=== PATIENT | male | born 1940 | race Caucasian/White ===

== ENCOUNTER 2017-02-11 12:05 | Emergency (ER) | payer MEDICARE, OTHER ==
[2017-02-11] MEDS ORDERED: Acetaminophen TAB* 325 MG PO ONE (12:55)
[2017-02-11] MEDS ORDERED: Gentamicin ADULT (*) 40 MG/ML VIAL IVPB ONE (12:56)
[2017-02-11 13:13] LABS: Urine Bacteria 1+ (Absent); Urine Bilirubin Negative (Negative); Urine Glucose Negative (Negative); Urine Nitrite Positive (Negative)
[2017-02-11] MEDS: NS 0.9% 1000 ML* 2,000 ML IV ONE ×2 (13:36→14:36)
[2017-02-11 13:48] LABS: Hematocrit 43 % (42-52); Hemoglobin 14.3 g/dl (14.0-18.0); Mean Corpuscular HGB Conc 33 g/dl (31-36); Mean Corpuscular Hemoglobin 35 pg (27-31); Mean Corpuscular Volume 104 fL (80-94); Mean Platelet Volume 9 um3 (7.4-10.4); Red Blood Count 4.16 10^6/ul (4.0-5.4); Red Cell Distribution Width 14 % (10.5-15); White Blood Count 11.1 10^3/ul (3.5-10.8)
[2017-02-11 14:07] LABS: Albumin 3.8 g/dL (3.2-5.2); BUN/Creatinine Ratio 11.3 (8-20); C Reactive Protein 96.45 mg/L (< 5.00); Calcium 8.9 mg/dL (8.6-10.3); EGFR African American 87.8 (>60); EGFR Non-African American 68.3 (>60); Globulin 2.9 g/dL (2-4); Potassium 3.9 mmol/L (3.5-5.0); Total Bilirubin 1.1 mg/dL (0.2-1.0); Total Protein 6.7 g/dL (6.4-8.9)
[2017-02-11 16:46] VITALS: BP 147/71
--- NOTE | 2017-02-11 18:37 | ED ---
Audrey Deutsch Auryana, scribed for Manpreet Forte MD on 02/11/17 at 1234 . GI/ HPI - HPI Summary HPI Summary: 76 year old male presents with dysuria starting today. He also reports decreased urinary output, malodorous urine, hematuria, mild headache, decreased appetite, and mild right flank pain. He also reports fever and chills that started yesterday. He denies any current flank pain, any cough, or any diarrhea. Patient reports that he has a cystoscopy done 3 days ago and was not advised to cease taking blood thinners. He denies any sick contact. Patient is currently on rifampin for a right leg wound. PMHx is significant for kidney stone removal, HTN, atrial fibrillation (Xarelto and baby daily), and rhinitis. He denies any history of DM, bladder/kidney infection, or bladder cancer. SHx is significant for tobacco use. - History of Current Complaint Chief Complaint: EDFever Time Seen by Provider: 02/11/17 12:28 Stated Complaint: FEVER Hx Obtained From: Patient Onset/Duration: Started Days Ago, Still Present Timing: Constant Severity: Mild Current Severity: Mild Pain Intensity: 2 - REPORTS MILD RIGHT FLANK PAIN Associated Signs and Symptoms: Positive: Fever, Change in Appetite - DECREASED APPEITE, Flank Pain - MILD RIGHT, Chills, Other: - decreased urinary output, malodorous urine, hematuria, mild headache. Negative: Diarrhea, Cough - Allergy/Home Medications Allergies/Adverse Reactions: Allergies Allergy/AdvReac Type Severity Reaction Status Date / Time No Known Allergies Allergy Verified 02/11/17 12:10 PMH/Surg Hx/FS Hx/Imm Hx Cardiovascular History: Reports: Hx Atrial Fibrillation, Hx Hypertension Respiratory History: Reports: Other Respiratory Problems/Disorders - RHINITIS Infectious Disease History: Yes Infectious Disease History: Denies: Traveled Outside the [place] in Last 30 Days - Family History Known Family History: Positive: Other - bladder cancer - Social History Occupation: Retired Lives: With Family Alcohol Use: None Hx Substance Use: No Substance Use Type: Reports: None Hx Tobacco Use: Yes Smoking Status (MU): Light Every Day Tobacco Smoker Review of Systems Positive: Fever, Chills Eyes: Negative Positive: Epistaxis Cardiovascular: Negative Respiratory: Negative Positive: Other. Negative: Diarrhea Positive: dysuria, flank pain - mild right flank pain , hematuria, other - decreased urinary output; malodorous urine Musculoskeletal: Negative Skin: Negative Positive: Headache Psychological: Normal All Other Systems Reviewed And Are Negative: Yes Physical Exam - Summary Physical Exam Summary: The patient is well-nourished in no acute distress and in no acute pain. The skin is warm and dry and skin color reflects adequate perfusion. There is good skin turgor. HEENT: The head is normocephalic and atraumatic. The pupils are equal and reactive. The conjunctivae are clear and without drainage. Nares are patent and without drainage. Mouth reveals moist mucous membranes and the throat is without erythema and exudate. The external ears are intact. The ear canals are patent and without drainage. The tympanic membranes are intact. Neck is supple with full range of motion and non-tender. There are no carotid bruits. There is no neck vein distension. Respiratory: Chest is non-tender. Lungs are clear to auscultation and breath sounds are symmetrical and equal. Cardiovascular: Hear is regular rate and rhythm. There is no murmur or rub auscultated. There is no peripheral edema and pulses are symmetrical and equal. Abdomen: The abdomen is soft and non-tender. There are normal bowel sounds heard in all four quadrants and there is no organomegaly palpated. Musculoskeletal: There is no back pain noted, and no CVA tenderness. Extremities are non-tender with full range of motion. There is good capillary refill and good pulses. There is no peripheral edema or calf tenderness elicited. Neurological: Patient is alert and oriented to person, place and time. The patient has symmetrical motor strength in all four extremities. Cranial nerves are grossly intact. Deep tendon reflexes are symmetrical and equal in all four extremities. Psychiatric: The patient has an appropriate affect and does not exhibit any anxiety or depression. Triage Information Reviewed: Yes Vital Signs On Initial Exam: Initial Vitals Temp Pulse Resp BP Pulse Ox 101.3 F 73 16 154/104 95 02/11/17 12:10 02/11/17 12:10 02/11/17 12:10 02/11/17 12:10 02/11/17 12:10 Vital Signs Reviewed: Yes Diagnostics - Vital Signs Vital Signs Temp Pulse Resp BP Pulse Ox 02/11/17 12:10 101.3 F 73 16 154/104 95 - Laboratory Lab Results: Lab Results 02/11/17 02/11/17 02/11/17 Range/Units 13:00 13:30 13:30 WBC 11.1 H (3.5-10.8) 10^3/ul RBC 4.16 (4.0-5.4) 10^6/ul Hgb 14.3 (14.0-18.0) g/dl Hct 43 (42-52) % MCV 104 H (80-94) fL MCH 35 H (27-31) pg MCHC 33 (31-36) g/dl RDW 14 (10.5-15) % Plt Count 123 L (150-450) 10^3/ul MPV 9 (7.4-10.4) um3 Neut % (Auto) 86.3 H (38-83) % Lymph % (Auto) 3.8 L (25-47) % D[place]key % (Auto) 9.6 H (1-9) % Eos % (Auto) 0 (0-6) % Baso % (Auto) 0.3 (0-2) % Absolute Neuts (auto) 9.6 H (1.5-7.7) 10^3/ul Absolute Lymphs (auto) 0.4 L (1.0-4.8) 10^3/ul Absolute Monos (auto) 1.1 H (0-0.8) 10^3/ul Absolute Eos (auto) 0 (0-0.6) 10^3/ul Absolute Basos (auto) 0 (0-0.2) 10^3/ul Absolute Nucleated RBC 0 10^3/ul Nucleated RBC % 0 INR (Anticoag Therapy) 1.88 H (0.89-1.11) Sodium (133-145) mmol/L Potassium (3.5-5.0) mmol/L Chloride (101-111) mmol/L Carbon Dioxide (22-32) mmol/L Anion Gap (2-11) mmol/L BUN (6-24) mg/dL Creatinine (0.67-1.17) mg/dL Est GFR ( Amer) (>60) Est GFR (Non-Af Amer) (>60) BUN/Creatinine Ratio (8-20) Glucose (70-100) mg/dL Lactic Acid (0.5-2.0) mmol/L Calcium (8.6-10.3) mg/dL Total Bilirubin (0.2-1.0) mg/dL AST (13-39) U/L ALT (7-52) U/L Alkaline Phosphatase (34-104) U/L C-Reactive Protein (< 5.00) mg/L Total Protein (6.4-8.9) g/dL Albumin (3.2-5.2) g/dL Globulin (2-4) g/dL Albumin/Globulin Ratio (1-3) Urine Color Yellow Urine Appearance Cloudy Urine pH 7.0 (5-9) Ur Specific [place] 1.016 (1.010-1.030) Urine Protein 1+(30 mg/dl) H (Negative) Urine Ketones Trace H (Negative) Urine Blood 3+ H (Negative) Urine Nitrate Positive H (Negative) Urine Bilirubin Negative (Negative) Urine Urobilinogen Positive H (Negative) Ur Leukocyte Esterase 3+ H (Negative) Urine WBC (Auto) 3+(>20/hpf) H (Absent) Urine RBC (Auto) 2+(6-10/hpf) H (Absent) Ur Transition Epith Cell Present H (Absent) Urine Bacteria 1+ H (Absent) Urine Glucose Negative (Negative) 02/11/17 02/11/17 Range/Units 13:30 13:30 WBC (3.5-10.8) 10^3/ul RBC (4.0-5.4) 10^6/ul Hgb (14.0-18.0) g/dl Hct (42-52) % MCV (80-94) fL MCH (27-31) pg MCHC (31-36) g/dl RDW (10.5-15) % Plt Count (150-450) 10^3/ul MPV (7.4-10.4) um3 Neut % (Auto) (38-83) % Lymph % (Auto) (25-47) % Dickey % (Auto) (1-9) % Eos % (Auto) (0-6) % Baso % (Auto) (0-2) % Absolute Neuts (auto) (1.5-7.7) 10^3/ul Absolute Lymphs (auto) (1.0-4.8) 10^3/ul Absolute Monos (auto) (0-0.8) 10^3/ul Absolute Eos (auto) (0-0.6) 10^3/ul Absolute Basos (auto) (0-0.2) 10^3/ul Absolute Nucleated RBC 10^3/ul Nucleated RBC % INR (Anticoag Therapy) (0.89-1.11) Sodium 133 (133-145) mmol/L Potassium 3.9 (3.5-5.0) mmol/L Chloride 104 (101-111) mmol/L Carbon Dioxide 23 (22-32) mmol/L Anion Gap 6 (2-11) mmol/L BUN 12 (6-24) mg/dL Creatinine 1.06 (0.67-1.17) mg/dL Est GFR ( Amer) 87.8 (>60) Est GFR (Non-Af Amer) 68.3 (>60) BUN/Creatinine Ratio 11.3 (8-20) Glucose 137 H (70-100) mg/dL Lactic Acid 1.2 (0.5-2.0) mmol/L Calcium 8.9 (8.6-10.3) mg/dL Total Bilirubin 1.10 H (0.2-1.0) mg/dL AST 16 (13-39) U/L ALT 10 (7-52) U/L Alkaline Phosphatase 53 (34-104) U/L C-Reactive Protein 96.45 H (< 5.00) mg/L Total Protein 6.7 (6.4-8.9) g/dL Albumin 3.8 (3.2-5.2) g/dL Globulin 2.9 (2-4) g/dL Albumin/Globulin Ratio 1.3 (1-3) Urine Color Urine Appearance Urine pH (5-9) Ur Specific [place] (1.010-1.030) Urine Protein (Negative) Urine Ketones (Negative) Urine Blood (Negative) Urine Nitrate (Negative) Urine Bilirubin (Negative) Urine Urobilinogen (Negative) Ur Leukocyte Esterase (Negative) Urine WBC (Auto) (Absent) Urine RBC (Auto) (Absent) Ur Transition Epith Cell (Absent) Urine Bacteria (Absent) Urine Glucose (Negative) Result Diagrams: 02/11/17 13:30 02/11/17 13:30 Lab Statement: Any lab studies that have been ordered have been reviewed, and results considered in the medical decision making process. Re-Evaluation - Re-Evaluation First Eval Re-Evaluation Time: 16:23 Change: Improved - and patient would like to go home GIGU Course/Dx - Course Assessment/Plan: 76 year old male presents with dysuria starting today. He also reports decreased urinary output, malodorous urine, hematuria, mild headache, decreased appetite, and mild right flank pain. He also reports fever and chills that started yesterday. He denies any current flank pain, any cough, or any diarrhea. Patient reports that he has a cystoscopy done 3 days ago and was not advised to cease taking blood thinners. He denies any sick contact. Patient is currently on rifampin for a right leg wound. PMHx is significant for kidney stone removal, HTN, atrial fibrillation (Xarelto and baby daily), and rhinitis. He denies any history of DM, bladder/kidney infection, or bladder cancer. SHx is significant for tobacco use. The patient was discussed with Dr. Russo. He recommends a bladder scan, 2g Rocephin, 180mg gentamycin, IV fluids, and if patient does not meet septic criteria, to discharge home. In ED course, patient was given 2g Rocephin, 180mg gentamycin, acetaminophen, and IV fluids. Blood work shows WBC 11.1, platelet count 123, INR 1.88, GLUCOSE 137, Total bilirubin 1.1, CRP 96.45, and lactic acid 1.2. LFT are WNL. UA shows protein 1+ , trace ketones, blood 3+, nitrate (+), urobilinogen (+), leukocyte esterase 3+ , WBC 3+, RBC 2+, (+) transition epithelial cells, and bacteria 1+. Dr. Russo 914:52) consulted patient in the ED and recommended observation for 1 hour and if the patient is feeling better, discharge him home with Bactrim, but if not, consult for admission. On re-evaluation, plan of action was discussed and the patient reports that he is feeling better. He will be discharged home with Bactrim and given follow up to PCP and Dr. Russo. Patient agrees with plan. Dx: U.T.I. - Diagnoses Differential Diagnoses - Male: Dehydration, Pyelonephritis, Renal Colic, Sepsis , Urinary Tract Infection, Other Provider Diagnoses: Urinary tract infection - Physician Notifications Discussed Care Of Patient With: Heriberto Russo Time Discussed With Above Provider: 12:52 - recommends a bladder scan, 2g Rocephin, 180mg gentamycin, IV fluids, and if patient does not meet septic criteria, to discharge home. Instructed by Provider To: MD Will See In ED - Dr. Russo 14:52 consulted patient in the ED- recommends observation for 1 hour and if the patient is feeling better, discharge him home with Bactrim, but if not, consult for admission. Discharge - Discharge Plan Condition: Stable Disposition: HOME Prescriptions: Sulfamethox/Trimethoprim DS* [Bactrim DS 800/160 TAB*] 1 tab PO BID #28 tab Patient Education Materials: Sulfamethoxazole/Trimethoprim (By mouth), Urinary Tract Infection in Men (ED) Referrals: Abdelrahman Padilla MD [Primary Care Provider] - 2 Days Heriberto Russo MD [Medical Doctor] - 2 Days The documentation as recorded by the Audrey berry Auryana accurately reflects the service I personally performed and the decisions made by me, Manpreet Forte MD.
--- NOTE | 2017-02-13 09:39 | PN ---
Progress Note - Progress Note Date of Service: 02/11/17 Note: Diagnosed with UTI. Preliminary culture results show >100,00 of e. coli. Treated with bactrim at d/c. will wait for final culture results. no action needed at this time.
== END 2017-02-11 16:46 | disposition home or self-care (01) ==
LOC: ED 12:05
DX: N39.0 Urinary tract infection, site not specified (principal); F17.200 Nicotine dependence, unspecified, uncomplicated; I10 Essential (primary) hypertension; I48.91 Unspecified atrial fibrillation; Z79.82 Long term (current) use of aspirin
CPT/HCPCS: 36415; 80053; 81003; 81015; 83605; 85025; 85610; 86140; 87040; 87077; 87086; 87186; 96360; 96374; 96375; 99284; A9270-GY; J0696; J1580

== ENCOUNTER 2022-01-20 06:57 | Observation (INO) ==
[~2022-01-20 06:57] MED LIST: Buffered Lidocaine 1% SYRIN 1 ml INTRADERM ONE; Dexamethasone IV 4 MG/ML VIAL 1 ml VIAL IV SLOW PU ONE; Famotidine IV 10 MG/ML 2 ml VIAL (20 mg) IV ONE; Lactated Ringers 1000 ml BAG 1,000 ML IV SCH
[2022-01-20] MEDS ORDERED: Tranexamic Acid 1 GM/100ML BAG 0 MG/0 ML BAG IV ONE (07:20)
[2022-01-20] MEDS ORDERED: Dexamethasone IV 4 MG/ML VIAL 1 ml VIAL ONE (07:20)
[2022-01-20] MEDS ORDERED: Famotidine IV 10 MG/ML 2 ml VIAL (20 mg) ONE (07:20)
[2022-01-20] MEDS ORDERED: ceFAZolin 2 GM PREMIX 2 GM/50 ML BAG ONE (07:20)
[2022-01-20 07:53] LABS: Activated Partial Thrombo Time 31.2 seconds (26.0-38.0); INR 1.28 (0.86-1.15)
[2022-01-20] MEDS ORDERED: Midazolam 2 mg/2 ml VIAL 1 mg/ml 2 ml VIAL (2 mg) ONE (08:29)
[2022-01-20] MEDS ORDERED: fentaNYL 100 mcg/2 ml 50 MCG/ML VIAL ONE ×2 (08:29→12:24)
[2022-01-20] MEDS ORDERED: Lidocaine 2% PF 5 ML VIAL ONE (08:30)
[2022-01-20] MEDS ORDERED: fentaNYL 250 mcg/5 ml 50 MCG/ML 5 ml VIAL (250 MCG) ONE (08:37)
[2022-01-20] MEDS ORDERED: Rocuronium 50 mg VIAL 10 mg/ml 5 ml VIAL (50 mg) ONE ×2 (08:38→10:08)
[2022-01-20] MEDS ORDERED: Propofol 10 MG/ML 20 ML BTL ONE (08:39)
[2022-01-20] MEDS ORDERED: ROPIVACAINE 5 MG/ML 30 ML BTL (0.5%) ONE (08:43)
[2022-01-20] MEDS ORDERED: Ondansetron 4 mg VIAL 2 MG/ML 2 ml VIAL ONE (09:59)
[2022-01-20] MEDS ORDERED: Ondansetron 4 mg VIAL 2 MG/ML 2 ml VIAL IV PRN (10:23)
[2022-01-20] MEDS ORDERED: Lactulose 30 ml UDC PO PRN (10:23)
[2022-01-20] MEDS ORDERED: Magnesium Hydroxide LIQ 30 ML UDC PO PRN (10:23)
[2022-01-20] MEDS ORDERED: Morphine 2 MG/ML SYRINGE IV PRN (10:23)
[2022-01-20] MEDS ORDERED: Ondansetron ODT 4 mg TAB 4 MG TAB PO PRN (10:23)
[2022-01-20] MEDS ORDERED: Phenylephrine 40 mcg/mL 10mL (400mcg) SYRINGE ONE (10:36)
[2022-01-20] MEDS ORDERED: Lactated Ringers 1000 ml BAG 1,000 ML IV SCH (11:00)
[2022-01-20] MEDS ORDERED: HYDROmorphone 0.5 MG/0.5 ML SYRINGE ONE (11:21)
[2022-01-20] MEDS ORDERED: fentaNYL 100 mcg/2 ml 50 MCG/ML VIAL IV PRN (12:12)
[2022-01-20] MEDS ORDERED: Naloxone 0.4 mg VIAL 0.4 mg/ml 1 ml VIAL IV PRN (12:12)
[2022-01-20] MEDS ORDERED: Morphine 4 MG/ML VIAL (1 ml) IV PRN (12:12)
[2022-01-20] MEDS ORDERED: Prochlorperazine 5 mg/ml 2 ml VIAL (10 mg) IV PRN (12:12)
[2022-01-20] MEDS: ceFAZolin 1 GM ADVAN 1 GM in NS 0.9% 50 ML 50 ML IVPB SCH (17:40)
[2022-01-20] MEDS: Magnesium Hydroxide LIQ 30 ML UDC PO SCH (20:29)
[2022-01-20] MEDS ORDERED: Latanoprost 0.005% 2.5 ml BTL BOTH EYES SCH (21:00)
[2022-01-21] MEDS: BRINZOLAMIDE 1% BOTH EYES SCH ×2 (00:53→11:38)
[2022-01-21] MEDS: ceFAZolin 1 GM ADVAN 1 GM in NS 0.9% 50 ML 50 ML IVPB SCH ×2 (01:14→10:20)
[2022-01-21 05:21] LABS: Hematocrit 24 % (42-52); Hemoglobin 7.8 g/dL (14.0-18.0); Mean Platelet Volume 8.2 fL (7.4-10.4); Platelet Count 140 10^3/uL (150-450)
[2022-01-21 05:53] LABS: Calcium 8.3 mg/dL (8.6-10.3); Potassium 4.4 mmol/L (3.5-5.0); eGFR CKD-EPI 84.6 (>60)
[2022-01-21] MEDS: Magnesium Hydroxide LIQ 30 ML UDC PO SCH (08:32)
[2022-01-21] MEDS ORDERED: CMC:Alfuzosin ER 10 mg TAB.ER (NF) 10 MG TAB.ER PO SCH (09:00)
[2022-01-21] MEDS ORDERED: Vitamin THERAPEUTIC TAB PO SCH (09:00)
[2022-01-21 12:19] VITALS: BP 110/56
== END 2022-01-21 13:15 | disposition home or self-care (01) ==
LOC: SSU 06:57 → SDS 06:57 → EDSTATUS 08:45
PROVIDERS: ADMIT Orthopaedic Surgery Adult Reconstructive Orthopaedic Surgery; ATTEND Orthopaedic Surgery Adult Reconstructive Orthopaedic Surgery

== ENCOUNTER 2023-02-28 10:06 | Observation (INO) ==
[2023-02-28] MEDS ORDERED: Albuterol/Ipratropium NEB.SOL (2.5/0.5 MG) 3 ML NEB.SOLN INH ONE (10:55)
[2023-02-28] MEDS ORDERED: cefTRIAXone 1 gm/50 mL D5W 1 GM/50 ML BAG IV ONE (11:05)
[2023-02-28] MEDS ORDERED: Azithromycin 500 mg/250 ml NS 500 MG/250 ML BAG IVPB ONE (11:05)
[2023-02-28 11:11] LABS: Hematocrit 41.9 % (38-53); Hemoglobin 13.7 g/dL (13.2-16.3); Mean Corpuscular Hemoglobin 32.8 pg (27-33); Mean Corpuscular Hgb Conc 32.8 g/dL (31-36); Mean Platelet Volume 7.9 fL (7.5-11.2); Platelet Count 162 10^3/uL (150-450); Red Blood Count 4.19 10^6/uL (4.06-5.63); Red Cell Distribution Width 16.4 % (12-17); White Blood Count 15.2 10^3/uL (3.6-10.2)
[2023-02-28 11:13] LABS: PCO2 Arterial 34 mmHg (35-45); PO2 Arterial 73 mmHg (80-100)
[2023-02-28 11:28] LABS: Albumin/Globulin Ratio 1.5 (1-3); C Reactive Protein 3.96 mg/L (<8.01); Calcium 8.4 mg/dL (8.6-10.3); Creatinine, Serum 0.94 mg/dL (0.67-1.17); Globulin 2.6 g/dL (2-4); Total Bilirubin 0.9 mg/dL (0.2-1.0); Total Protein 6.6 g/dL (6.4-8.9); eGFR CKD-EPI 81.9 (>60)
[2023-02-28] MEDS ORDERED: Iodixanol (CONTRAST) 320 MG/ML 100 ML SDV IV ONE (11:57)
[2023-02-28 12:02] LABS: ABS Basophils 0.1 10^3/uL (0.0-0.1); ABS Lymphocytes 0.6 10^3/uL (1.0-4.8); ABS Monocytes 1.1 10^3/uL (0.0-1.1); ABS Neutrophils 13.4 10^3/uL (1.5-7.6); Eosinophil % 0.1 %; Lymphocyte % 3.8 %; Macrocytosis 1+
[2023-02-28] MEDS ORDERED: Lactated Ringers 1000 ml BAG 1,000 ML IV ONE ×2 (12:13→20:14)
[2023-02-28 12:46] LABS: High Sensitivity Troponin 1 Hr 86 pg/mL (<20)
[2023-02-28 13:27] LABS: Urine Appearance Cloudy; Urine Bilirubin Negative (Negative); Urine Blood 3+ (Negative); Urine Color Yellow; Urine Glucose Negative (Negative); Urine Ketones Negative (Negative); Urine Nitrite Negative (Negative); Urine Protein 1+(30 mg/dL) (Negative); Urine Urobilinogen Negative (Negative)
[2023-02-28 13:37] LABS: Urine Bacteria Absent (Absent); Urine Red Blood Cell 3+(>10/hpf) (Absent); Urine White Blood Cell 1+(6-10/hpf) (Absent); Urine Yeast Present (Absent)
[2023-02-28] MEDS ORDERED: Lactated Ringers 1000 ml BAG 1,000 ML IV SCH (17:00)
[2023-02-28] MEDS: PTO: Brinzolamide 1% OPHTH SOL(NF) BTL BOTH EYES SCH (21:17)
[2023-02-28] MEDS: Latanoprost 0.005% 2.5 ml BTL BOTH EYES SCH (21:22)
[2023-03-01 06:48] LABS: ABS Lymphocytes 0.8 10^3/uL (1.0-4.8); ABS Monocytes 1.2 10^3/uL (0.0-1.1); ABS Neutrophils 11.5 10^3/uL (1.5-7.6); Eosinophil % 0.3 %; Hematocrit 35.1 % (38-53); Hemoglobin 11.9 g/dL (13.2-16.3); Lymphocyte % 5.9 %; Mean Corpuscular Hemoglobin 33.6 pg (27-33); Mean Corpuscular Hgb Conc 33.9 g/dL (31-36); Mean Corpuscular Volume 99.2 fL (80-97); Mean Platelet Volume 8.2 fL (7.5-11.2); Platelet Count 110 10^3/uL (150-450); Red Blood Count 3.54 10^6/uL (4.06-5.63); Red Cell Distribution Width 16.3 % (12-17); White Blood Count 13.5 10^3/uL (3.6-10.2)
[2023-03-01 06:53] LABS: Calcium 8.6 mg/dL (8.6-10.3); Creatinine, Serum 0.74 mg/dL (0.67-1.17); Magnesium 1.6 mg/dL (1.9-2.7); Potassium 3.9 mmol/L (3.5-5.0); eGFR CKD-EPI 91.6 (>60)
[2023-03-01] MEDS ORDERED: Multivitamins/Minerals TAB PO SCH (09:00)
[2023-03-01] MEDS ORDERED: Magnesium Sulfate IV 1GM/100ML 1 GM/100 ML BAG IV ONE (09:00)
[2023-03-01] MEDS: PTO:Multivitamins/Mins AREDS2 (NF) CAP PO SCH ×2 (10:17→20:19)
[2023-03-01] MEDS: PTO: Brinzolamide 1% OPHTH SOL(NF) BTL BOTH EYES SCH ×2 (10:17→20:20)
[2023-03-01] MEDS: CMCS:Alfuzosin ER 10 mg TAB.ER (NF) 10 MG TAB.ER PO SCH (10:34)
[2023-03-01] MEDS ORDERED: cefTRIAXone 1 gm/50 mL D5W 1 GM/50 ML BAG IV SCH (13:00)
[2023-03-01] MEDS ORDERED: Azithromycin 500 mg/250 ml NS 500 MG/250 ML BAG IVPB SCH (13:00)
[2023-03-01 15:13] LABS: Folate 10.89 ng/mL (5.90-24.80)
[2023-03-01] MEDS: Latanoprost 0.005% 2.5 ml BTL BOTH EYES SCH (20:43)
[2023-03-02 06:42] LABS: ABS Eosinophils 0.2 10^3/uL (0.0-0.5); ABS Lymphocytes 0.8 10^3/uL (1.0-4.8); ABS Monocytes 0.9 10^3/uL (0.0-1.1); Eosinophil % 2.5 %; Hematocrit 34.3 % (38-53); Hemoglobin 11.7 g/dL (13.2-16.3); Lymphocyte % 8.3 %; Mean Corpuscular Hemoglobin 34.1 pg (27-33); Mean Corpuscular Hgb Conc 34.2 g/dL (31-36); Mean Corpuscular Volume 99.8 fL (80-97); Mean Platelet Volume 8.2 fL (7.5-11.2); Platelet Count 109 10^3/uL (150-450); Red Blood Count 3.44 10^6/uL (4.06-5.63); Red Cell Distribution Width 16.3 % (12-17)
[2023-03-02 07:01] LABS: Calcium 8.7 mg/dL (8.6-10.3); Creatinine, Serum 0.8 mg/dL (0.67-1.17); Potassium 3.9 mmol/L (3.5-5.0); eGFR CKD-EPI 89.5 (>60)
[2023-03-02] MEDS: PTO:Multivitamins/Mins AREDS2 (NF) CAP PO SCH (08:53)
[2023-03-02] MEDS: CMCS:Alfuzosin ER 10 mg TAB.ER (NF) 10 MG TAB.ER PO SCH (08:53)
[2023-03-02] MEDS: PTO: Brinzolamide 1% OPHTH SOL(NF) BTL BOTH EYES SCH (08:56)
[2023-03-02] MEDS ORDERED: cefTRIAXone 1 gm/50 mL D5W 1 GM/50 ML BAG IV SCH (10:00)
[2023-03-02 10:20] VITALS: BP 147/77
[2023-03-02] MEDS ORDERED: Azithromycin 500 mg/250 ml NS 500 MG/250 ML BAG IVPB SCH (10:30)
== END 2023-03-02 13:15 | disposition home or self-care (01) ==
LOC: EDHOLD 10:06 → ED 10:06 → SUATTDRO 14:28 → MED 16:05
PROVIDERS: ADMIT Hospitalist; ATTEND Internal Medicine